=== PATIENT | male | born 1990 | race Two or more races ===

== ENCOUNTER 2019-07-10 09:13 | Emergency (ER) | payer OTHER ==
[~2019-07-10] VITALS: Ht 170.2 cm; Wt 70.3 kg
[2019-07-10] MEDS ORDERED: Humalog100 UNIT/3 (09:44)
[2019-07-10] MEDS ORDERED: Ultram50 MG PO (10:28)
[2019-07-10] MEDS ORDERED: Naprosyn500 MG PO (10:28)
== END 2019-07-10 10:32 | disposition home or self-care (01) ==
LOC: ER 09:13
DX: M77.9 Enthesopathy, unspecified (principal); E10.9 Type 1 diabetes mellitus without complications
CPT/HCPCS: 96372; 99283-25; J1885